=== PATIENT | female | born 1940 | race Caucasian/White ===

== ENCOUNTER → 2017-04-11 | Day surgery (SDC) | payer OTHER ==
[~2017-04-11] MED LIST: ATV1 PO; CRAN500C2 PO; PANT40TA PO; PHNS25 PO; SUCR1TAB29 PO
== END | disposition home or self-care (01) ==
LOC: C.ACU 13:27
PROVIDERS: ATTEND Family Medicine
DX: Z93.6 Other artificial openings of urinary tract status (principal)